=== PATIENT | female | born 1985 | race Caucasian/White ===

== ENCOUNTER 2022-06-05 13:14 | Outpatient (CLI) | payer BC | END 2022-06-05 13:15 | disposition home or self-care (01) | LOC: RAD 13:14 | PROVIDERS: ATTEND Podiatrist | DX: S99.922A Unspecified injury of left foot, initial encounter (principal) ==

== ENCOUNTER 2022-08-25 09:05 | Outpatient (CLI) | payer BC | END 2022-08-25 09:06 | disposition home or self-care (01) | LOC: RAD 09:05 | PROVIDERS: ATTEND Nurse Practitioner Primary Care | DX: R06.00 Dyspnea, unspecified (principal) | CPT/HCPCS: 71046 ==

== ENCOUNTER 2022-11-06 07:41 | Outpatient (CLI) | payer BC | END 2022-11-06 07:42 | disposition home or self-care (01) | LOC: BICCT 07:41 | PROVIDERS: ATTEND Internal Medicine | DX: R59.0 Localized enlarged lymph nodes (principal) | CPT/HCPCS: 70491 ==